=== PATIENT | male | born 1990 | race Caucasian/White ===

== ENCOUNTER → 2019-10-29 | Outpatient (CLI) | payer OTHER | END | disposition home or self-care (01) | LOC: LABWHC1 13:20 | PROVIDERS: ATTEND Emergency Medicine | DX: Z20.818 Contact with and (suspected) exposure to other bacterial communicable diseases (principal) | CPT/HCPCS: U0003; C9803 ==

== ENCOUNTER 2021-02-23 15:37 | Emergency (ER) | payer BC, OTHER ==
[2021-02-23 16:28] VITALS: BP 141/84; PULSE 86; RESP 16; TEMP 98
[2021-02-23] MEDS ORDERED: AMOXIC-POT CLAV 875MG STARTER PACK 2 TAB BTL PO STA (16:53)
[2021-02-23] MEDS ORDERED: TETANUS-DIPHTHERIA TOX (PF) 0.5 ML VIAL IM ONE (17:21)
--- NOTE | 2021-02-23 17:25 | ED ---
General Adult HPI - General Chief complaint: Animal Bite Stated complaint: [facility]-Animal Bite Source: patient Mode of arrival: ambulatory Limitations: no limitations - History of Present Illness Initial comments: 30 year-old male patient presents to the emergency department for evaluation of right hand cat bite. 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 States he believes the cat was in the home for the last two weeks. He is unsure if it is a stray or if it was left behind by the previous tenants. States that he was seen at the clinic and they sent him in for xray, antibiotics, and possible rabies vaccine. Patient denies significant pain to the hand. Denies difficulty with range of motion. He has no fever or chills. His tetanus vaccine is not up to date. - Related Data Home Medications Medication Instructions Recorded Confirmed Acetaminophen Tab [Tylenol Tab] 1,000 mg PO Q6HR PRN 02/23/21 02/23/21 Losartan-Hctz 50-12.5 mg [Hyzaar 1 tab PO DAILY 02/23/21 02/23/21 50-12.5] Previous Rx's Medication Instructions Recorded Amoxic-Pot Clav 875-125Mg 1 tab PO Q12HR #20 tablet 02/23/21 [Augmentin 875-125] Allergies Allergy/AdvReac Type Severity Reaction Status Date / Time Pertussis Vaccines Allergy Unknown Verified 02/23/21 18:09 Review of Systems ROS Statement: Those systems with pertinent positive or pertinent negative responses have been documented in the HPI. ROS Other: All systems not noted in ROS Statement are negative. Past Medical History Past Medical History: No Reported History History of Any Multi-Drug Resistant Organisms: None Reported Past Surgical History: Orthopedic Surgery Past Psychological History: No Psychological Hx Reported Smoking Status: Never smoker Past Alcohol Use History: Occasional Past Drug Use History: None Reported General Exam Limitations: no limitations General appearance: alert, in no apparent distress, other (This is a well developed, well nourished adult male in no acute distress.) ENT exam: Present: normal exam, normal oropharynx, mucous membranes moist Respiratory exam: Present: normal lung sounds bilaterally. Absent: respiratory distress, wheezes, rales, rhonchi, stridor Cardiovascular Exam: Present: regular rate, normal rhythm, normal heart sounds. Absent: systolic murmur, diastolic murmur, rubs, gallop, clicks Extremities exam: Present: full ROM, normal capillary refill, other (puncture to right dorsal hand, mild surrounding erythema. No swelling. Radial pulses 2+.). Absent: tenderness, pedal edema, joint swelling, calf tenderness Neurological exam: Present: alert, oriented X3, CN II-XII intact Psychiatric exam: Present: normal affect, normal mood Skin exam: Present: warm, dry, intact, normal color. Absent: rash Course Vital Signs 02/23/21 16:25 Temperature 98 F Pulse Rate 86 Respiratory 16 Rate Blood Pressure 141/84 O2 Sat by Pulse 97 Oximetry Medical Decision Making - Medical Decision Making 30 year-old male patient presents to the emergency department for evaluation of cat bite to the right hand. Physical examination revealed punctures to the dorsal right hand, mild surrounding erythema. He is afebrile with normal vital signs. Xray shows no fracture or foreign body. We did discuss rabies risk and post exposure prophylaxis. Using shared decision making we decided to not proceed with PEP at this time due to low risk of rabies infection of the animal. He will be discharged with prescription for augmentin. Septra follow-up with the primary care physician for recheck in 1-2 days. Return parameters were discussed in detail. He verbalizes understanding and agrees with this plan. My attending is Dr. Felder. - Radiology Data Radiology results: report reviewed, image reviewed 3 views of the right hand is obtained. Report was reviewed in its entirety. Impression by Dr. Ambriz shows negative right hand exam. No fracture. Disposition Clinical Impression: Cat bite of right hand Disposition: HOME SELF-CARE Instructions (If sedation given, give patient instructions): Animal Bite (ED) Additional Instructions: Complete antibiotic prescription in full. Monitor for fevers, increased redness, or swelling. Follow-up with her primary care physician for recheck in 1-2 days. Return to the emergency department for any new, worsening, or concerning symptoms. Prescriptions: Amoxic-Pot Clav 875-125Mg [Augmentin 875-125] 1 tab PO Q12HR #20 tablet Is patient prescribed a controlled substance at d/c from ED?: No Referrals: Jax Luis DO [Primary Care Provider] - 1-2 days Time of Disposition: 17:55
--- NOTE | 2021-02-23 17:46 | XR ---
EXAMINATION TYPE: XR hand complete RT DATE OF EXAM: 02/23/2021 COMPARISON: NONE HISTORY: Cat bite TECHNIQUE: 3 views FINDINGS: Metacarpals are intact. I see no fracture nor dislocation. Joint spaces are fairly normal. IMPRESSION: Negative right hand exam. No fracture.
== END 2021-02-23 18:07 | disposition home or self-care (01) ==
LOC: EC 15:37
DX: S61.451A Open bite of right hand, initial encounter (principal); W55.01XA Bitten by cat, initial encounter
CPT/HCPCS: 90471; 90714; 99283

== ENCOUNTER → 2023-01-06 | Outpatient (CLI) | payer BC ==
--- NOTE | 2023-01-08 13:25 | XR ---
EXAMINATION TYPE: XR chest 2V DATE OF EXAM: 01/06/2023 3:40 PM CLINICAL INDICATION:Male, 32 years old with history of R52 PAIN; [facility] COMPARISON: None. TECHNIQUE: XR chest 2V Frontal and lateral views of the chest. FINDINGS: Lungs/Pleura: There is no evidence of pleural effusion, focal consolidation, or pneumothorax. Pulmonary vascularity: Unremarkable. Heart/mediastinum: Cardiomediastinal silhouette is unremarkable. Musculoskeletal: No acute osseous pathology. IMPRESSION: No acute cardiopulmonary disease/process.
--- NOTE | 2023-01-08 13:25 | XR ---
EXAMINATION TYPE: XR ribs LT DATE OF EXAM: 01/06/2023 3:40 PM CLINICAL INDICATION:Male, 32 years old with history of PAIN; [facility] COMPARISON: None. TECHNIQUE: Frontal and oblique views of the left ribs with frontal chest radiograph. FINDINGS: The ribs have a normal appearance. No evidence of fracture.The remaining osseous structure s are intact. IMPRESSION: No acute osseous pathology.
== END | disposition home or self-care (01) ==
LOC: RADXRMAIN 15:21
PROVIDERS: ATTEND Family Medicine
DX: R07.9 Chest pain, unspecified (principal)
CPT/HCPCS: 71046